=== PATIENT | male | born 1950 | race Caucasian/White ===

== ENCOUNTER 2018-09-21 15:08 | Emergency (ER) | payer MEDICARE, OTHER ==
[~2018-09-21] VITALS: Ht 180.3 cm; Wt 152.0 kg
[2018-09-21] MEDS ORDERED: KEFLEX500 M1 PO ×2 (15:27→16:42)
[2018-09-21] MEDS ORDERED: COZAAR 25 MG TA25 M1 PO (15:29)
[2018-09-21] MEDS ORDERED: PIOGLITAZONE15 MG (15:29)
[2018-09-21] MEDS ORDERED: METFORMIN HCL500 MG PO (15:29)
[2018-09-21] MEDS ORDERED: ASPIRIN325 PO (15:29)
[2018-09-21] MEDS ORDERED: MUCINEX100 MG PO (15:30)
[2018-09-21] MEDS ORDERED: IBUPROFEN 800800 M1 PO (16:42)
[2018-09-21 17:01] VITALS: BP 154/74
== END 2018-09-21 17:03 | disposition home or self-care (01) ==
LOC: M.ERS 15:08
DX: S62.112A Displaced fracture of triquetrum [cuneiform] bone, left wrist, initial encounter for closed fracture (principal); S61.112A Laceration without foreign body of left thumb with damage to nail, initial encounter; W18.30XA Fall on same level, unspecified, initial encounter; Y93.89 Activity, other specified; Y92.89 Other specified places as the place of occurrence of the external cause; Y99.8 Other external cause status